=== PATIENT | male | born 1965 | race Caucasian/White ===

== ENCOUNTER 2023-08-04 13:45 | Outpatient (CLI) | payer BC, SELFPAY ==
[2023-08-04 13:58] VITALS: PULSE 89; RESP 18; O2SAT 99
[2023-08-04] MEDS: albuterol 2.5 mg/3 mL Neb INHALATION (13:58)
[2023-08-04 14:02] VITALS: PULSE 87
== END 2023-08-04 13:46 | disposition home or self-care (01) ==
LOC: RT 13:46
PROVIDERS: PCP Internal Medicine; Visit Provider Internal Medicine
DX: R05.3 Chronic cough (principal)
CPT/HCPCS: 94060; 94726; 94729; J7613